=== PATIENT | female | born 1945 | race Caucasian/White ===

== ENCOUNTER 2018-05-24 07:10 | Emergency (ER) | payer OTHER ==
[~2018-05-24] VITALS: Ht 167.6 cm; Wt 118.4 kg
[~2018-05-24 07:10] MED LIST: ACET30TA PO; ALBUAER2 INH; ALLO300T2 PO; AMLO5TAB3 PO; ASPCH81X PO; ATEN-175 PO; ATOR-24 PO; B-COTAB53 PO; CHOL100010 PO; DULO-24 PO; FURO-85 PO; GLUCTAB7 PO; LEVO175T23 PO; MAGN400T6 PO; OMEP20TA PO
[2018-05-24] MEDS ORDERED: ACET300T3 PO (07:39)
[2018-05-24] MEDS ORDERED: CHOL1000 PO (07:39)
[2018-05-24] MEDS ORDERED: VNTHFA/IN INH (07:39)
[2018-05-24] MEDS ORDERED: LEVO175T PO (07:39)
[2018-05-24 07:43] LABS: BASO % 0.6 %; BASO ABS # 0.07 K/uL (0-0.2); EOS % 2.5 %; EOS ABS # 0.28 K/uL (0-0.5); HEMATOCRIT 36.7 % (37-47); HEMOGLOBIN 12.2 g/dL (12.0-16.0); IG# 0.04 K/uL (0.00-0.02); LYMPH % 41.8 %; LYMPH ABS # 4.67 K/uL (1.2-3.4); MEAN CELL VOLUME 98.9 fL (80-100); MEAN CORPUSCULAR HEMOGLOBIN 32.9 pg (25-34); MEAN CORPUSCULAR HGB CONC 33.2 g/dl (32-36); MEAN PLATELET VOLUME 10.6 fL (7.4-10.4); MONO % 6.9 %; MONO ABS # 0.77 K/uL (0.11-0.59); NEUT % 47.8 %; NEUT ABS # 5.33 K/uL (1.4-6.5); PLATELET COUNT 295 K/uL (130-400); RED CELL DISTRIBUTION WIDTH CV 14.1 % (11.5-14.5); RED CELL DISTRIBUTION WIDTH SD 50.8 fL (36.4-46.3); WHITE BLOOD COUNT 11.16 K/uL (4.8-10.8)
[2018-05-24 07:44] VITALS: TEMP 36.5; O2SAT 93; Ht 167.6 cm; Wt 118.4 kg
[2018-05-24 07:56] LABS: ALBUMIN 3.1 gm/dl (3.4-5.0); ALKALINE PHOSPHATASE 123 U/L (45-117); ALT/SGPT 28 U/L (12-78); AST/SGOT 54 U/L (15-37); BLOOD UREA NITROGEN 14 mg/dl (7-18); CARBON DIOXIDE 22 mmol/L (21-32); CREATININE 1.21 mg/dl (0.60-1.20); GLUCOSE 95 mg/dl (70-99); POTASSIUM 3.3 mmol/L (3.5-5.1); SODIUM 139 mmol/L (136-145)
--- NOTE | 2018-05-24 08:06 | DIAGNOSTIC IMAGING REPORT ---
CHEST ONE VIEW PORTABLE CLINICAL HISTORY: ALCOHOL OD COMPARISON STUDY: No previous studies for comparison. FINDINGS: The bones soft tissues and hemidiaphragms are normal. The cardiomediastinal silhouette is normal. The lungs are clear. The pulmonary vasculature is normal. IMPRESSION: Negative chest. The above report was generated using voice recognition software. It may contain grammatical, syntax or spelling errors. Electronically signed by: Raymond Pimentel M.D. 05/24/2018 8:05 AM Dictated Date/Time: 05/24/2018 7:52 AM
--- NOTE | 2018-05-24 08:32 | DIAGNOSTIC IMAGING REPORT ---
CT HEAD WITHOUT CONTRAST (CT) CLINICAL HISTORY: Head pain status post trauma COMPARISON STUDY: No previous studies for comparison. TECHNIQUE: Axial CT of the brain is performed from the vertex to the skull base. IV contrast was not administered for this examination. A dose lowering technique was utilized adhering to the principles of ALARA. CT DOSE: 2184.22 mGy.cm FINDINGS: No intra or extra-axial mass lesions are visualized. There is no CT evidence of acute cortical infarction. There is no evidence of midline shift. There is no acute hemorrhage. No calvarial fractures are visualized. There are patchy white matter hypodensities likely on a small vessel basis. There is no evidence of pathologic ventricular dilatation. There is no evidence of acute sinusitis. There is a left frontal and left periorbital hematoma. IMPRESSION: 1. Left frontal and left periorbital hematoma 2. No acute intracranial findings Electronically signed by: Bong Mejia M.D. 05/24/2018 8:30 AM Dictated Date/Time: 05/24/2018 8:16 AM
--- NOTE | 2018-05-24 08:34 | DIAGNOSTIC IMAGING REPORT ---
CERVICAL SPINE W/O CT DOSE: HISTORY: Trauma. Pain. fall TECHNIQUE: Multiaxial CT images of the cervical spine were performed and reformatted in the sagittal and coronal plane without the use of contrast. A dose lowering technique was utilized adhering to the principles of ALARA. COMPARISON: None. FINDINGS: No fractures. No subluxation. Prevertebral soft tissues and the C1-C2 interval are intact. No pneumothorax. Degenerative disc change C5-C7. Minimal grade 1 retrolisthesis C5 on C6 presumably on a degenerative basis. Minimal grade 1 anterolisthesis C3 on C4 secondary to degenerative changes posterior elements. IMPRESSION: Degenerative change. No acute process. The above report was generated using voice recognition software. It may contain grammatical, syntax or spelling errors. Electronically signed by: Raymond Pimentel M.D. 05/24/2018 8:32 AM Dictated Date/Time: 05/24/2018 8:30 AM
--- NOTE | 2018-05-24 08:43 | DIAGNOSTIC IMAGING REPORT ---
CT FACIAL BONES-MXILLOFAC WITHOUT CT DOSE: CLINICAL HISTORY: Facial pain status post trauma COMPARISON STUDY: No previous studies for comparison. TECHNIQUE: Helical images were acquired in the transverse plane. The study was reviewed and analyzed on the independent 3-D workstation. A dose lowering technique was utilized adhering to the principles of ALARA. The pterygoid plates appear intact. The zygomatic arches appear intact. The globes appear intact. There is no evidence of orbital emphysema. The orbital mcdermott and floor appear intact. The mandibular condyles appear intact. There are arthritic changes present within the temporomandibular joints. There is poor dentition with several dental apical abscesses. There is a left frontal scalp hematoma. There is left periorbital edema. IMPRESSION: No facial fractures identified. Electronically signed by: Bong Mejia M.D. 05/24/2018 8:42 AM Dictated Date/Time: 05/24/2018 8:30 AM
[2018-05-24] MEDS ORDERED: LIDOCAINE/EPINEPHRINE 1% 20 ML VIAL ONE (09:49)
--- NOTE | 2018-05-24 10:02 | EMERGENCY ROOM VISIT NOTE ---
History Report prepared by Hayder: Cecilio Gonzalez Under the Supervision of: Dr. Magnus Decker D.O. First contact with patient: 07:15 Stated Complaint: FALL/ FACIAL LAC/BRUISING History of Present Illness The patient is a 72 year old female who presents to the Emergency Room with significant bruising to the left eye and left side of her face that resulted from a recent falling episode. The patient is unable to remember when she fell, but notes that she things she fell because she was drinking wine. She woke up on the floor after the fall and hit her LifeAlert button. The son at bedside notes that she hit her LifeAlert button around 0545, 2 hours ago. The patient is complaining of some "blurry" vision in the left eye. She adds that she commonly drinks 1 bottle of wine per night, and denies drinking more than usual last night. Source of History: patient, family Onset: Hit LifeAlert 2 hours ago Position: eye (left) Quality: other (Fall) Timing: other (Falling episode last night) Note: Blurry vision in the left eye. Review of Systems See HPI for pertinent positives & negatives. A total of 10 systems reviewed and were otherwise negative. Past Medical & Surgical Medical Problems: (1) Asthma (2) Basal cell carcinoma of ear (3) Benign hypertension (4) Chronic kidney disease stage 3 (5) Dyslipidemia (6) [place] hepatitis (7) Fibromyalgia (8) Genu varum of right lower extremity (9) GERD (gastroesophageal reflux disease) (10) Gout (11) Hypothyroidism (12) Knee pain, right (13) Mild aortic stenosis (14) Obesity, Class III, BMI 40-49.9 (morbid obesity) (15) Osteoarthritis of right knee (16) Paroxysmal atrial fibrillation (17) Right knee DJD Surgical Problems: (1) H/o bladder neck repair (2) H/O colonoscopy with polypectomy (3) H/O foot surgery (4) History of hysterectomy Family History Diabetes mellitus GRANDFATHER Hypertension GRANDMOTHER Social History Smoking Status: Former Smoker Housing Status: lives alone Occupation Status: retired Current/Historical Medications Scheduled Albuterol Hfa (Ventolin Hfa), 2 PUFFS INH Q4H Allopurinol (Zyloprim), 450 MG PO QAM Amlodipine (Norvasc), 10 MG PO QAM Aspirin (Aspirin Chewable), 81 MG PO QAM Atenolol (Tenormin), 100 MG PO QAM Atorvastatin (Lipitor), 40 MG PO QAM B-Complex W/ Folic Acid (B Complex), 1 TAB PO QAM Cholecalciferol (Vitamin D3), 1,000 UNITS PO DAILY Duloxetine HCl (Cymbalta), 20 MG PO QPM Furosemide (Lasix), 40 MG PO QAM Furosemide (Lasix), 20 MG PO QPM Robbslxsgvq-Htdcimhhdyi-Gya C- (Glucosamine Chondroitin), 2 TABS PO QAM Levothyroxine Sodium (Synthroid), 175 MCG PO DAILY Magnesium Oxide (Mag-Ox), 400 MG PO QAM Omeprazole (Omeprazole), 20 MG PO BID Scheduled PRN Acetaminophen/Codeine (Tylenol W/Codeine #3), 1 TAB PO BID PRN for Pain Allergies Coded Allergies: No Known Allergies (Unverified , 05/24/18) Physical Exam Vital Signs Date Time Temp Pulse Resp B/P (MAP) Pulse Ox O2 Delivery O2 Flow Rate FiO2 05/24/18 08:50 74 16 139/77 94 Room Air 05/24/18 07:44 36.5 79 14 136/66 93 Room Air 05/24/18 07:44 93 Room Air Physical Exam CONSTITUTIONAL/VITAL SIGNS: Reviewed / noted above. GENERAL: Non-toxic in appearance. INTEGUMENTARY: Warm, dry, and [place]. HEAD: Left supraorbital laceration measuring 4 cm. There is periorbital ecchymosis and edema. EYES: without scleral icterus or trauma. ENT/OROPHARYNX: clear and moist. LYMPHADENOPATHY/NECK: Is supple without lymphadenopathy or meningismus. RESPIRATORY: Lungs clear and equal. CARDIOVASCULAR: Regular rate and rhythm. GI/ABDOMEN: Soft and nontender. No organomegaly or pulsatile mass. No rebound or guarding. Normal bowel sounds. EXTREMITIES: Warm and well perfused. BACK: No CVA tenderness. NEUROLOGICAL: Intact without focal deficits. PSYCHIATRIC: normal affect. MUSCULOSKELETAL: Normally developed with good muscle tone. Medical Decision & Procedures ER Provider Diagnostic Interpretation: Radiology results as stated below per my review and radiologist interpretation: CERVICAL SPINE W/O CT DOSE: HISTORY: Trauma. Pain. fall TECHNIQUE: Multiaxial CT images of the cervical spine were performed and reformatted in the sagittal and coronal plane without the use of contrast. A dose lowering technique was utilized adhering to the principles of ALARA. COMPARISON: None. FINDINGS: No fractures. No subluxation. Prevertebral soft tissues and the C1-C2 interval are intact. No pneumothorax. Degenerative disc change C5-C7. Minimal grade 1 retrolisthesis C5 on C6 presumably on a degenerative basis. Minimal grade 1 anterolisthesis C3 on C4 secondary to degenerative changes posterior elements. IMPRESSION: Degenerative change. No acute process. The above report was generated using voice recognition software. It may contain grammatical, syntax or spelling errors. Electronically signed by: Raymond Pimentel M.D. 05/24/2018 8:32 AM Dictated Date/Time: 05/24/2018 8:30 AM CHEST ONE VIEW PORTABLE CLINICAL HISTORY: ALCOHOL OD COMPARISON STUDY: No previous studies for comparison. FINDINGS: The bones soft tissues and hemidiaphragms are normal. The cardiomediastinal silhouette is normal. The lungs are clear. The pulmonary vasculature is normal. IMPRESSION: Negative chest. The above report was generated using voice recognition software. It may contain grammatical, syntax or spelling errors. Electronically signed by: Raymond Pimentel M.D. 05/24/2018 8:05 AM Dictated Date/Time: 05/24/2018 7:[address] HEAD WITHOUT CONTRAST (CT) CLINICAL HISTORY: Head pain status post trauma COMPARISON STUDY: No previous studies for comparison. TECHNIQUE: Axial CT of the brain is performed from the vertex to the skull base. IV contrast was not administered for this examination. A dose lowering technique was utilized adhering to the principles of ALARA. CT DOSE: 2184.22 mGy.cm FINDINGS: No intra or extra-axial mass lesions are visualized. There is no CT evidence of acute cortical infarction. There is no evidence of midline shift. There is no acute hemorrhage. No calvarial fractures are visualized. There are patchy white matter hypodensities likely on a small vessel basis. There is no evidence of pathologic ventricular dilatation. There is no evidence of acute sinusitis. There is a left frontal and left periorbital hematoma. IMPRESSION: 1. Left frontal and left periorbital hematoma 2. No acute intracranial findings Electronically signed by: Bong Mejia M.D. 05/24/2018 8:30 AM Dictated Date/Time: 05/24/2018 8:[address] FACIAL BONES-MXILLOFAC WITHOUT CT DOSE: CLINICAL HISTORY: Facial pain status post trauma COMPARISON STUDY: No previous studies for comparison. TECHNIQUE: Helical images were acquired in the transverse plane. The study was reviewed and analyzed on the independent 3-D workstation. A dose lowering technique was utilized adhering to the principles of ALARA. The pterygoid plates appear intact. The zygomatic arches appear intact. The globes appear intact. There is no evidence of orbital emphysema. The orbital mcdermott and floor appear intact. The mandibular condyles appear intact. There are arthritic changes present within the temporomandibular joints. There is poor dentition with several dental apical abscesses. There is a left frontal scalp hematoma. There is left periorbital edema. IMPRESSION: No facial fractures identified. Electronically signed by: Bong Mejia M.D. 05/24/2018 8:42 AM Dictated Date/Time: 05/24/2018 8:30 AM Laboratory Results 05/24/18 06:44 Red Blood Count 3.71, Mean Corpuscular Volume 98.9, Mean Corpuscular Hemoglobin 32.9, Mean Corpuscular Hemoglobin Concent 33.2, Mean Platelet Volume 10.6, Neutrophils (%) (Auto) 47.8, Lymphocytes (%) (Auto) 41.8, Monocytes (%) (Auto) 6.9, Eosinophils (%) (Auto) 2.5, Basophils (%) (Auto) 0.6, Neutrophils # (Auto) 5.33, Lymphocytes # (Auto) 4.67, Monocytes # (Auto) 0.77, Eosinophils # (Auto) 0.28, Basophils # (Auto) 0.07 05/24/18 06:44 Test 05/24/18 06:44 05/24/18 07:59 White Blood Count 11.16 K/uL (4.8-10.8) Red Blood Count 3.71 M/uL (4.2-5.4) Hemoglobin 12.2 g/dL (12.0-16.0) Hematocrit 36.7 % (37-47) Mean Corpuscular Volume 98.9 fL (80-100) Mean Corpuscular Hemoglobin 32.9 pg (25-34) Mean Corpuscular Hemoglobin Concent 33.2 g/dl (32-36) Platelet Count 295 K/uL (130-400) Mean Platelet Volume 10.6 fL (7.4-10.4) Neutrophils (%) (Auto) 47.8 % Lymphocytes (%) (Auto) 41.8 % Monocytes (%) (Auto) 6.9 % Eosinophils (%) (Auto) 2.5 % Basophils (%) (Auto) 0.6 % Neutrophils # (Auto) 5.33 K/uL (1.4-6.5) Lymphocytes # (Auto) 4.67 K/uL (1.2-3.4) Monocytes # (Auto) 0.77 K/uL (0.11-0.59) Eosinophils # (Auto) 0.28 K/uL (0-0.5) Basophils # (Auto) 0.07 K/uL (0-0.2) RDW Standard Deviation 50.8 fL (36.4-46.3) RDW Coefficient of Variation 14.1 % (11.5-14.5) Immature Granulocyte % (Auto) 0.4 % Immature Granulocyte # (Auto) 0.04 K/uL (0.00-0.02) Anion Gap 13.0 mmol/L (3-11) Estimated GFR () 51.8 Estimated GFR (Non- 44.7 BUN/Creatinine Ratio 11.2 (10-20) Calcium Level 9.0 mg/dl (8.5-10.1) Total Bilirubin 0.2 mg/dl (0.2-1) Direct Bilirubin < 0.1 mg/dl (0-0.2) Aspartate Amino Transf (AST/SGOT) 54 U/L (15-37) Alanine Aminotransferase (ALT/SGPT) 28 U/L (12-78) Alkaline Phosphatase 123 U/L (45-117) Total Protein 7.0 gm/dl (6.4-8.2) Albumin 3.1 gm/dl (3.4-5.0) Acetaminophen Level < 2 ug/ml (10-30) Ethyl Alcohol mg/dL 194.6 mg/dl (0-3) Laboratory results as stated above per my review. Procedure Laceration repair: 4 centimeter face laceration 1% lidocaine was used for local anesthesia. Copious irrigation. Betadine prep. Sterile technique. 4 4.0 nylon sutures were placed with good approximation of the wound. Patient tolerated procedure well. No complications. Wound was explored to its depth. No tendon, nerve or arterial involvement. ED Course 0727: Previous medical records were reviewed. The patient was evaluated in room B2. A complete history and physical examination was performed. 0954: I performed a laceration repair, see procedure note for further findings. 1010: On reevaluation, the patient is resting in bed. I discussed the results and findings with the patient. She verbalized agreement of the treatment plan. The patient was discharged home. Medical Decision Differential diagnosis: Etiologies such as fracture, dislocation, intra-abdominal, pneumothorax, intrathoracic , intracranial, neurologic, as well as other traumatic pathologies were entertained. This is a 72-year-old female who presents to the ED after a fall. The patient feels that her fall was related to alcohol consumption. She pushed a medic alert button and she was brought here for evaluation. The patient on exam has left periorbital ecchymosis, edema and a slight left supraorbital laceration. Laceration is about 4 cm in length. Exam was otherwise unremarkable she denies any other complaints. CT scan of the head, face and neck did not show any acute bony injuries or intracranial trauma. CBC was unremarkable, potassium was 3.3, alcohol is 194. The patient was told the results of the test. The laceration was repaired. She was felt to be stable for discharge. Sutures out in 7-10 days by her doctor. Medication Reconcilliation Current Medication List: was personally reviewed by me Blood Pressure Screening Patient's blood pressure: Normal blood pressure Impression Primary Impression: Fall Additional Impressions: Laceration of face Alcohol intoxication Contusion of face Scribe Attestation The scribe's documentation has been prepared under my direction and personally reviewed by me in its entirety. I confirm that the note above accurately reflects all work, treatment, procedures, and medical decision making performed by me. Departure Information Dispostion Home / Self-Care Referrals Candace Tiwari M.D. (PCP) Additional Instructions Have sutures removed in 7-10 days. Return for worsening or new symptoms. Avoid excessive alcohol consumption. Problem Qualifiers
[2018-05-24 10:21] VITALS: BP 135/85; PULSE 84; O2SAT 94
== END 2018-05-24 10:24 | disposition home or self-care (01) ==
LOC: EDBD 07:10 → C.EDB 07:11
DX: S01.112A Laceration without foreign body of left eyelid and periocular area, initial encounter (principal); S00.83XA Contusion of other part of head, initial encounter; W19.XXXA Unspecified fall, initial encounter; F10.929 Alcohol use, unspecified with intoxication, unspecified; Y90.6 Blood alcohol level of 120-199 mg/100 ml; J45.909 Unspecified asthma, uncomplicated; K21.9 Gastro-esophageal reflux disease without esophagitis; M17.11 Unilateral primary osteoarthritis, right knee; E03.9 Hypothyroidism, unspecified; M79.7 Fibromyalgia; M10.9 Gout, unspecified; E78.5 Hyperlipidemia, unspecified; I10 Essential (primary) hypertension; B17.8 Other specified acute viral hepatitis; Z79.899 Other long term (current) drug therapy; Z79.82 Long term (current) use of aspirin